=== PATIENT | male | born 1990 | race Caucasian/White ===

== ENCOUNTER 2017-03-01 14:05 | Inpatient (IN) | payer MEDICAID, OTHER ==
[2017-03-01] MEDS: SOD CHLORIDE 0.9% 1,000 ML IV ×2 (16:08→19:16)
[2017-03-01] MEDS: morphine 4 MG/ML VIAL IV (16:08)
[2017-03-01] MEDS: ONDANSETRON 4 MG INJ IV (16:08)
[2017-03-01 16:09] LABS: ADD MAN DIFF? NO
[2017-03-01 16:11] LABS: WHITE BLOOD COUNT 18.3 10^3/ul (4.8-10.8)
[2017-03-01 16:11] LABS: BASOPHIL # 0.1 10^3/ul (0.0-0.1); BASOPHILS % 0.4 % (0.0-2.0); EOSINOPHILS % 0.1 % (0.0-7.0); HEMATOCRIT 44.6 % (42.0-52.0); HEMOGLOBIN 15.5 g/dl (14.0-18.0); LYMPHOCYTES # 1.6 10^3/ul (0.8-2.9); LYMPHOCYTES % 8.5 % (15.0-51.0); MEAN CORPUSCULAR HEMOGLOBIN 29.8 pg (29.0-33.0); MEAN CORPUSCULAR HGB CONC 34.8 g/dl (32.0-37.0); MEAN CORPUSCULAR VOLUME 85.6 fl (82.0-101.0); MEAN PLATELET VOLUME 9.2 fl (7.4-10.4); MONOCYTE # 1.2 10^3/ul (0.3-0.9); MONOCYTES % 6.6 % (0.0-11.0); NEUTROPHIL # 15.2 10^3/ul (1.6-7.5); NEUTROPHILS % 82.7 % (39.0-77.0); PLATELET COUNT 431 10^3/UL (140-415); RED BLOOD COUNT 5.21 10^6/ul (4.70-6.10); RED CELL DISTRIBUTION WIDTH 12.3 % (11.5-14.5)
[2017-03-01 16:13] LABS: ADD UMIC NO; UR ASCORBIC ACID NEGATIVE (NEGATIVE); UR BILIRUBIN (Dip) NEGATIVE (NEGATIVE); UR BLOOD (Dip) NEGATIVE (NEGATIVE); UR CLARITY CLEAR (CLEAR); UR COLOR STRAW (YELLOW); UR GLUCOSE (Dip) 3+ mg/dL (NEGATIVE); UR KETONES (Dip) 2+ mg/dL (NEGATIVE); UR LEUKOCYTE ESTERASE (Dip) NEGATIVE Leu/ul (NEGATIVE); UR NITRITE (Dip) NEGATIVE (NEGATIVE); UR SPECIFIC GRAVITY (Dip) 1.018 (1.003-1.030); UR TOTAL PROTEIN (Dip) NEGATIVE (NEGATIVE); UR UROBILINOGEN (Dip) NEGATIVE (NEGATIVE)
[2017-03-01 16:31] LABS: AMPHETAMINE/METHAMPHETAMINE Positive (NEGATIVE); BARBITURATES Negative (NEGATIVE); BENZODIAZEPINES Negative (NEGATIVE); CANNABINOIDS Negative (NEGATIVE); COCAINE Negative (NEGATIVE); OPIATES Negative (NEGATIVE)
[2017-03-01 16:37] LABS: ALANINE AMINOTRANSFERASE 39 IU/L (13-69); ALBUMIN 5.1 g/dl (3.3-4.9); ALBUMIN/GLOBULIN RATIO 1.75; ALKALINE PHOSPHATASE 172 IU/L (42-121); ANION GAP 34 (8-16); ASPARTATE AMINO TRANSFERASE 36 IU/L (15-46); BILIRUBIN,INDIRECT 0.3 mg/dl (0-1.1); BILIRUBIN,TOTAL 0.3 mg/dl (0.2-1.3); BLOOD UREA NITROGEN 20 mg/dl (7-20); CALCIUM 9.6 mg/dl (8.4-10.2); CARBON DIOXIDE 14 mmol/L (21-31); CHLORIDE 91 mmol/L (97-110); CREATININE 0.97 mg/dl (0.61-1.24); LIPASE 1315 U/L (23-300); POTASSIUM 5.1 mmol/L (3.5-5.1); SODIUM 134 mmol/L (135-144)
[2017-03-01 16:42] LABS: ETHANOL < 10.0 mg/dl; GLUCOSE 432 mg/dl (70-220)
[2017-03-01] MEDS: ACCU-CHEK XX ×7 (18:06→23:13)
[2017-03-01] MEDS: POTASSIUM CHLORIDE 30 MEQ in SOD CHLORIDE 0.9% 1,000 ML IV (19:10)
[2017-03-01] MEDS: INSULIN HUMAN REGULAR 100 UNIT in SOD CHLORIDE 0.9% 99 ML IV (19:15)
[2017-03-01] MEDS ORDERED: HYDROCODONE/APAP (5/325) TAB PO (19:30)
[2017-03-01] MEDS ORDERED: morphine 2 MG INJ IV (19:30)
[2017-03-01] MEDS ORDERED: ACETAMINOPHEN 325 MG TAB PO (19:30)
[2017-03-01] MEDS ORDERED: ONDANSETRON 4 MG INJ IV (19:30)
[2017-03-01] MEDS ORDERED: DEXTROSE 50% 50 ML SYRINGE IV ×2 (19:30)
[2017-03-01] MEDS ORDERED: NACL 0.9% 3 ML SYG IV (19:30)
[2017-03-01] MEDS ORDERED: INSULIN HUMAN REGULAR 100 UNIT in SOD CHLORIDE 0.9% 99 ML IV (19:30)
[2017-03-01] MEDS ORDERED: HYPOGLYCEMIA TREATMENT XX (19:30)
[2017-03-01] MEDS: LACTATED RINGER'S 1,000 ML IV (20:16)
[2017-03-01 21:02] LABS: PHOSPHORUS 4.1 mg/dl (2.5-4.9)
[2017-03-01] MEDS ORDERED: POTASSIUM CHLORIDE 20 MEQ in SOD CHLORIDE 0.9% 1,000 ML IV (21:16)
[2017-03-01 21:58] LABS: BLOOD UREA NITROGEN 15 mg/dl (7-20); CALCIUM 8.4 mg/dl (8.4-10.2); CARBON DIOXIDE 13 mmol/L (21-31); CHLORIDE 105 mmol/L (97-110); GLUCOSE 243 mg/dl (70-220); SODIUM 136 mmol/L (135-144)
[2017-03-01 22:02] LABS: ANION GAP 23 (8-16); POTASSIUM 4.5 mmol/L (3.5-5.1)
[2017-03-01] MEDS: D5W-0.45 NACL + KCL 30 MEQ 1,000 ML IV (22:26)
[2017-03-02] MEDS: ACCU-CHEK XX ×8 (00:10→14:59)
[2017-03-02] MEDS: D5W-0.45 NACL + KCL 30 MEQ 1,000 ML IV ×2 (01:55→10:51)
[2017-03-02 02:41] LABS: ANION GAP 12 (8-16); BLOOD UREA NITROGEN 13 mg/dl (7-20); CALCIUM 8.2 mg/dl (8.4-10.2); CARBON DIOXIDE 22 mmol/L (21-31); CHLORIDE 107 mmol/L (97-110); CREATININE 0.69 mg/dl (0.61-1.24); GLUCOSE 93 mg/dl (70-220); POTASSIUM 3.9 mmol/L (3.5-5.1); SODIUM 137 mmol/L (135-144)
[2017-03-02] MEDS: SOD CHLORIDE 0.9% 1,000 ML IV (03:35)
[2017-03-02] MEDS: PANTOPRAZOLE 40 MG INJ IV (06:33)
[2017-03-02 06:56] LABS: ADD MAN DIFF? NO
[2017-03-02 07:04] LABS: BASOPHILS % 0.2 % (0.0-2.0); EOSINOPHILS # 0.1 10^3/ul (0.0-0.5); EOSINOPHILS % 0.4 % (0.0-7.0); HEMATOCRIT 36.6 % (42.0-52.0); HEMOGLOBIN 12.7 g/dl (14.0-18.0); LYMPHOCYTES # 1.7 10^3/ul (0.8-2.9); LYMPHOCYTES % 12.5 % (15.0-51.0); MEAN CORPUSCULAR HEMOGLOBIN 30.2 pg (29.0-33.0); MEAN CORPUSCULAR HGB CONC 34.7 g/dl (32.0-37.0); MEAN CORPUSCULAR VOLUME 87.1 fl (82.0-101.0); MEAN PLATELET VOLUME 9.1 fl (7.4-10.4); MONOCYTE # 1.1 10^3/ul (0.3-0.9); MONOCYTES % 7.8 % (0.0-11.0); NEUTROPHIL # 10.7 10^3/ul (1.6-7.5); NEUTROPHILS % 78.6 % (39.0-77.0); PLATELET COUNT 321 10^3/UL (140-415); RED CELL DISTRIBUTION WIDTH 12.4 % (11.5-14.5)
[2017-03-02 07:04] LABS: WHITE BLOOD COUNT 13.7 10^3/ul (4.8-10.8)
[2017-03-02 07:15] LABS: ALANINE AMINOTRANSFERASE 36 IU/L (13-69); ALBUMIN 3.2 g/dl (3.3-4.9); ALBUMIN/GLOBULIN RATIO 1.28; ALKALINE PHOSPHATASE 98 IU/L (42-121); ANION GAP 20 (8-16); ASPARTATE AMINO TRANSFERASE 21 IU/L (15-46); BILIRUBIN,INDIRECT 0.2 mg/dl (0-1.1); BILIRUBIN,TOTAL 0.2 mg/dl (0.2-1.3); BLOOD UREA NITROGEN 12 mg/dl (7-20); CALCIUM 8.6 mg/dl (8.4-10.2); CARBON DIOXIDE 14 mmol/L (21-31); CHLORIDE 104 mmol/L (97-110); CHOL/HDL RATIO 2.9 RATIO; CHOLESTEROL 154 mg/dl (100-200); CREATININE 0.67 mg/dl (0.61-1.24); GLUCOSE 313 mg/dl (70-220); HDL CHOLESTEROL 53 mg/dl (30-63); LDL CHOLESTEROL,CALCULATED 61 mg/dl; MAGNESIUM 1.8 mg/dl (1.7-2.5); PHOSPHORUS 3.2 mg/dl (2.5-4.9); POTASSIUM 4.8 mmol/L (3.5-5.1); SODIUM 133 mmol/L (135-144); TOTAL PROTEIN 5.7 g/dl (6.1-8.1); TRIGLYCERIDES 201 mg/dl (0-149)
[2017-03-02] MEDS: INSULIN ASPART [NOVOLOG] 3 ML PEN SC ×4 (07:35→20:56)
[2017-03-02 08:31] LABS: HEMOGLOBIN A1C 11.4 % (0-5.9)
[2017-03-02] MEDS: INSULIN REGULAR, HUMAN 100 UNIT/1 ML 3ML VIAL IV (09:45)
[2017-03-02] MEDS: INSULIN HUMAN REGULAR 100 UNIT in SOD CHLORIDE 0.9% 99 ML IV (09:57)
[2017-03-02 10:34] LABS: ANION GAP 19 (8-16); BLOOD UREA NITROGEN 12 mg/dl (7-20); CALCIUM 8.6 mg/dl (8.4-10.2); CARBON DIOXIDE 14 mmol/L (21-31); CHLORIDE 102 mmol/L (97-110); GLUCOSE 295 mg/dl (70-220); SODIUM 131 mmol/L (135-144)
[2017-03-02 14:48] LABS: ANION GAP 9 (8-16); BLOOD UREA NITROGEN 12 mg/dl (7-20); CALCIUM 8.7 mg/dl (8.4-10.2); CARBON DIOXIDE 24 mmol/L (21-31); CHLORIDE 104 mmol/L (97-110); CREATININE 0.62 mg/dl (0.61-1.24); GLUCOSE 94 mg/dl (70-220); POTASSIUM 3.8 mmol/L (3.5-5.1); SODIUM 133 mmol/L (135-144)
[2017-03-02] MEDS ORDERED: D5W-0.45 NACL + KCL 20 MEQ 1,000 ML IV (14:51)
[2017-03-02] MEDS: D5W-0.45 NACL + KCL 20 MEQ 1,000 ML IV (15:30)
[2017-03-02] MEDS: INFLUENZA VIRUS VACCINE 0.5 ML (DISPENSING) IM* (16:00)
[2017-03-02] MEDS: INSULIN GLARGINE [LANtus] 3 ML PEN SC (17:02)
[2017-03-02] MEDS ORDERED: INSULIN ASPART [NOVOLOG] 3 ML PEN SC (17:35)
[2017-03-02] MEDS ORDERED: INSULIN GLARGINE [LANtus] 3 ML PEN SC (20:00)
[2017-03-02 20:31] LABS: ANION GAP 12 (8-16); BLOOD UREA NITROGEN 9 mg/dl (7-20); CALCIUM 8.8 mg/dl (8.4-10.2); CARBON DIOXIDE 23 mmol/L (21-31); CHLORIDE 101 mmol/L (97-110); CREATININE 0.64 mg/dl (0.61-1.24); GLUCOSE 139 mg/dl (70-220); POTASSIUM 3.9 mmol/L (3.5-5.1); SODIUM 132 mmol/L (135-144)
[2017-03-02 22:27] LABS: ANION GAP 11 (8-16); BLOOD UREA NITROGEN 11 mg/dl (7-20); CALCIUM 8.9 mg/dl (8.4-10.2); CARBON DIOXIDE 26 mmol/L (21-31); CHLORIDE 98 mmol/L (97-110); CREATININE 0.63 mg/dl (0.61-1.24); GLUCOSE 231 mg/dl (70-220); POTASSIUM 3.9 mmol/L (3.5-5.1); SODIUM 131 mmol/L (135-144)
[2017-03-03] MEDS: ACCU-CHEK XX ×11 (02:02→20:09)
[2017-03-03] MEDS: INSULIN ASPART [NOVOLOG] 3 ML PEN SC ×6 (02:08→20:08)
[2017-03-03 04:57] LABS: ADD MAN DIFF? NO
[2017-03-03 04:59] LABS: BASOPHILS % 0.2 % (0.0-2.0); EOSINOPHILS # 0.1 10^3/ul (0.0-0.5); EOSINOPHILS % 0.8 % (0.0-7.0); HEMATOCRIT 35.8 % (42.0-52.0); HEMOGLOBIN 12.8 g/dl (14.0-18.0); LYMPHOCYTES # 1.7 10^3/ul (0.8-2.9); LYMPHOCYTES % 20.2 % (15.0-51.0); MEAN CORPUSCULAR HEMOGLOBIN 30.7 pg (29.0-33.0); MEAN CORPUSCULAR HGB CONC 35.8 g/dl (32.0-37.0); MEAN CORPUSCULAR VOLUME 85.9 fl (82.0-101.0); MEAN PLATELET VOLUME 9.6 fl (7.4-10.4); MONOCYTE # 0.4 10^3/ul (0.3-0.9); MONOCYTES % 4.8 % (0.0-11.0); NEUTROPHIL # 6.3 10^3/ul (1.6-7.5); NEUTROPHILS % 73.8 % (39.0-77.0); PLATELET COUNT 304 10^3/UL (140-415); RED BLOOD COUNT 4.17 10^6/ul (4.70-6.10); RED CELL DISTRIBUTION WIDTH 12.2 % (11.5-14.5)
[2017-03-03 04:59] LABS: WHITE BLOOD COUNT 8.5 10^3/ul (4.8-10.8)
[2017-03-03 05:34] LABS: ALANINE AMINOTRANSFERASE 25 IU/L (13-69); ALBUMIN 3.7 g/dl (3.3-4.9); ALBUMIN/GLOBULIN RATIO 1.32; ALKALINE PHOSPHATASE 124 IU/L (42-121); ANION GAP 19 (8-16); ASPARTATE AMINO TRANSFERASE 45 IU/L (15-46); BILIRUBIN,INDIRECT 0.2 mg/dl (0-1.1); BILIRUBIN,TOTAL 0.2 mg/dl (0.2-1.3); BLOOD UREA NITROGEN 13 mg/dl (7-20); CALCIUM 8.4 mg/dl (8.4-10.2); CARBON DIOXIDE 17 mmol/L (21-31); CHLORIDE 98 mmol/L (97-110); CREATININE 0.62 mg/dl (0.61-1.24); POTASSIUM 4.9 mmol/L (3.5-5.1); SODIUM 129 mmol/L (135-144); TOTAL PROTEIN 6.5 g/dl (6.1-8.1)
[2017-03-03 06:27] LABS: GLUCOSE 448 mg/dl (70-220)
[2017-03-03] MEDS ORDERED: INSULIN ASPART [NOVOLOG] 3 ML PEN SC ×2 (07:35→11:30)
[2017-03-03] MEDS: INSULIN REGULAR, HUMAN 100 UNIT/1 ML 3ML VIAL IV (08:53)
[2017-03-03] MEDS ORDERED: DEXTROSE 50% 50 ML SYRINGE IV ×4 (09:00→14:00)
[2017-03-03] MEDS: INSULIN HUMAN REGULAR 100 UNIT in SOD CHLORIDE 0.9% 99 ML IV ×2 (09:00→11:05)
[2017-03-03] MEDS: SOD CHLORIDE 0.9% 1,000 ML IV (10:53)
[2017-03-03 13:18] LABS: ANION GAP 11 (8-16); BLOOD UREA NITROGEN 12 mg/dl (7-20); CALCIUM 8.8 mg/dl (8.4-10.2); CARBON DIOXIDE 26 mmol/L (21-31); CHLORIDE 101 mmol/L (97-110); CREATININE 0.56 mg/dl (0.61-1.24); GLUCOSE 179 mg/dl (70-220); POTASSIUM 3.7 mmol/L (3.5-5.1); SODIUM 134 mmol/L (135-144)
[2017-03-03] MEDS ORDERED: GLUCOSE GEL 15 GRAM TUBE BUCCAL (14:00)
[2017-03-03] MEDS ORDERED: GLUCAGON 1 MG INJ IM (14:00)
[2017-03-03] MEDS ORDERED: GLUCOSE GEL 15 GRAM TUBE PO ×2 (14:00)
[2017-03-03] MEDS: INSULIN GLARGINE [LANtus] 3 ML PEN SC (14:13)
[2017-03-03 18:53] LABS: ANION GAP 13 (8-16); BLOOD UREA NITROGEN 14 mg/dl (7-20); CALCIUM 8.9 mg/dl (8.4-10.2); CARBON DIOXIDE 24 mmol/L (21-31); CHLORIDE 100 mmol/L (97-110); CREATININE 0.68 mg/dl (0.61-1.24); GLUCOSE 182 mg/dl (70-220); POTASSIUM 3.4 mmol/L (3.5-5.1); SODIUM 134 mmol/L (135-144)
[2017-03-03 23:29] LABS: ANION GAP 14 (8-16); BLOOD UREA NITROGEN 15 mg/dl (7-20); CALCIUM 8.9 mg/dl (8.4-10.2); CARBON DIOXIDE 26 mmol/L (21-31); CHLORIDE 100 mmol/L (97-110); CREATININE 0.62 mg/dl (0.61-1.24); GLUCOSE 104 mg/dl (70-220); POTASSIUM 3.2 mmol/L (3.5-5.1); SODIUM 137 mmol/L (135-144)
[2017-03-04] MEDS: POTASSIUM CHLORIDE 20 MEQ POWDER FOR ORAL SOLN PO (00:46)
[2017-03-04] MEDS: ACCU-CHEK XX ×3 (00:49→13:29)
[2017-03-04 06:02] LABS: ANION GAP 13 (8-16); CALCIUM 8.9 mg/dl (8.4-10.2); CARBON DIOXIDE 25 mmol/L (21-31); CHLORIDE 102 mmol/L (97-110); CREATININE 0.51 mg/dl (0.61-1.24); GLUCOSE 236 mg/dl (70-220); POTASSIUM 3.8 mmol/L (3.5-5.1); SODIUM 136 mmol/L (135-144)
[2017-03-04 06:04] LABS: BLOOD UREA NITROGEN 12 mg/dl (7-20)
[2017-03-04] MEDS: INSULIN ASPART [NOVOLOG] 3 ML PEN SC ×4 (08:16→12:03)
[2017-03-04] MEDS: INSULIN GLARGINE [LANtus] 3 ML PEN SC (08:18)
== END 2017-03-04 13:45 | disposition home or self-care (01) | DRG 637 ==
LOC: PP2 03-04 01:49 → E/R 14:05 → ICU 17:09
PROVIDERS: Internal Medicine
DX: E10.10 Type 1 diabetes mellitus with ketoacidosis without coma (principal); K85.20 Alcohol induced acute pancreatitis without necrosis or infection; E86.0 Dehydration; F15.10 Other stimulant abuse, uncomplicated; R11.2 Nausea with vomiting, unspecified; Z79.4 Long term (current) use of insulin; Z72.89 Other problems related to lifestyle; Z91.14 Patient's other noncompliance with medication regimen
CPT/HCPCS: 36415; 71045; 80048; 80053; 80061; 80306; 80307; 81003; 82962; 83036; 83690; 83735; 84100; 85025; 90686; 93005; 96372; 96374; 96375; 99291-25

== ENCOUNTER 2017-03-09 20:28 | Emergency (ER) | payer SELFPAY, MEDICAID | END 2017-03-09 21:04 | disposition left against medical advice (07) | LOC: E/R 20:28 | DX: Z53.21 Procedure and treatment not carried out due to patient leaving prior to being seen by health care provider (principal) | CPT/HCPCS: 82962 ==

== ENCOUNTER 2017-07-29 18:55 | Inpatient (IN) | payer BC, MEDICAID ==
[2017-07-29] MEDS: KETOROLAC 30 MG INJ IV (21:03)
[2017-07-29] MEDS: SOD CHLORIDE 0.9% 1,000 ML IV (21:04)
[2017-07-29] MEDS: CLINDAMYCIN 600 MG/D5W (PMX) 50 ML IVPB (21:08)
[2017-07-29 21:12] LABS: ADD MAN DIFF? NO
[2017-07-29 21:19] LABS: ADD UMIC YES; UR ASCORBIC ACID NEGATIVE (NEGATIVE); UR BILIRUBIN (Dip) NEGATIVE (NEGATIVE); UR BLOOD (Dip) 1+ mg/dL (NEGATIVE); UR CLARITY CLEAR (CLEAR); UR COLOR YELLOW (YELLOW); UR GLUCOSE (Dip) 3+ mg/dL (NEGATIVE); UR KETONES (Dip) 2+ mg/dL (NEGATIVE); UR LEUKOCYTE ESTERASE (Dip) NEGATIVE Leu/ul (NEGATIVE); UR NITRITE (Dip) NEGATIVE (NEGATIVE); UR RBC 1 /HPF (0-5); UR SPECIFIC GRAVITY (Dip) 1.014 (1.003-1.030); UR TOTAL PROTEIN (Dip) 1+ mg/dl (NEGATIVE); UR UROBILINOGEN (Dip) NEGATIVE (NEGATIVE); UR WBC 1 /HPF (0-5)
[2017-07-29 21:32] LABS: ANION GAP 27 (8-16); BASOPHILS % 0.3 % (0.0-2.0); BLOOD UREA NITROGEN 10 mg/dl (7-20); CARBON DIOXIDE 12 mmol/L (21-31); CHLORIDE 98 mmol/L (97-110); CREATININE 0.78 mg/dl (0.61-1.24); GLUCOSE 245 mg/dl (70-220); HEMATOCRIT 45.1 % (42.0-52.0); HEMOGLOBIN 15.8 g/dl (14.0-18.0); LYMPHOCYTES # 1.2 10^3/ul (0.8-2.9); MEAN CORPUSCULAR HEMOGLOBIN 29.6 pg (29.0-33.0); MEAN CORPUSCULAR VOLUME 84.5 fl (82.0-101.0); MEAN PLATELET VOLUME 8.8 fl (7.4-10.4); MONOCYTE # 0.7 10^3/ul (0.3-0.9); MONOCYTES % 5.5 % (0.0-11.0); NEUTROPHILS % 84.6 % (39.0-77.0); PLATELET COUNT 456 10^3/UL (140-415); POTASSIUM 4.5 mmol/L (3.5-5.1); RED BLOOD COUNT 5.34 10^6/ul (4.70-6.10); RED CELL DISTRIBUTION WIDTH 12.2 % (11.5-14.5); SODIUM 132 mmol/L (135-144)
[2017-07-29 21:33] LABS: ALANINE AMINOTRANSFERASE 20 IU/L (13-69); ALBUMIN 5.2 g/dl (3.3-4.9); ALKALINE PHOSPHATASE 222 IU/L (42-121); ASPARTATE AMINO TRANSFERASE 15 IU/L (15-46); BILIRUBIN,INDIRECT 0.9 mg/dl (0-1.1); BILIRUBIN,TOTAL 0.9 mg/dl (0.2-1.3); CALCIUM 9.9 mg/dl (8.4-10.2); TOTAL PROTEIN 8.9 g/dl (6.1-8.1)
[2017-07-29 21:51] LABS: AMPHETAMINE/METHAMPHETAMINE POSITIVE (NEGATIVE); BARBITURATES NEGATIVE (NEGATIVE); BENZODIAZEPINES NEGATIVE (NEGATIVE); CANNABINOIDS NEGATIVE (NEGATIVE); COCAINE NEGATIVE (NEGATIVE); OPIATES NEGATIVE (NEGATIVE)
[2017-07-29] MEDS: SODIUM CHLORIDE 0.9% 1L BAG IV* (23:47)
[2017-07-30 00:15] LABS: LACTIC ACID 1.1 mmol/L (0.5-2.0)
[2017-07-30 02:07] LABS: LACTIC ACID 0.9 mmol/L (0.5-2.0)
[2017-07-30] MEDS ORDERED: NACL 0.9% 3 ML SYG IV (03:30)
[2017-07-30] MEDS ORDERED: DOCUSATE SODIUM 100 MG CAP PO (03:30)
[2017-07-30] MEDS ORDERED: VANCOMYCIN IV PER PHARMACY XX (03:30)
[2017-07-30] MEDS ORDERED: MAGNESIUM HYDROXIDE 30ML CUP PO (03:30)
[2017-07-30] MEDS: CEFEPIME 2GM/50 ML (PMX) 50 ML IVPB (03:38)
[2017-07-30] MEDS: VANCOMYCIN 1 GM (PMX) 250 ML IVPB (03:38)
[2017-07-30] MEDS: SOD CHLORIDE 0.9% 1,000 ML IV ×4 (03:39→17:20)
[2017-07-30 04:08] LABS: LACTIC ACID 0.8 mmol/L (0.5-2.0)
[2017-07-30] MEDS: KETOROLAC 30 MG INJ IV (05:15)
[2017-07-30] MEDS: ONDANSETRON 4 MG INJ IV (05:16)
[2017-07-30] MEDS: ONDANSETRON 4 MG TAB PO (07:57)
[2017-07-30] MEDS ORDERED: DEXTROSE 50% 50 ML SYRINGE IV ×2 (08:30)
[2017-07-30 08:34] LABS: Allen Test ACCEPTAB; Arterial Base Excess -31.3 mmol/L (-3.0-3); Arterial Blood Gas Oxygen Sat 97.8 mmHG (95.0-98.0); Arterial COHb 0.2 % (0.0-3.0); Arterial Fraction of Oxyhgb 97.1 % (93.0-99.0); Arterial HCO3 1.8 mmol/L (22.0-26.0); Arterial MetHb 0.5 % (0.0-1.5); Arterial Total Hemglobin 15.4 g/dl (12.0-18.0); Arterial pCO2 10.8 mmhg (35-45); MODE ROOM AIR; Site Right Radial
[2017-07-30 08:54] LABS: HEMOGLOBIN A1C 13.3 % (0-5.9)
[2017-07-30 08:57] LABS: BLOOD UREA NITROGEN 14 mg/dl (7-20); CALCIUM 8.5 mg/dl (8.4-10.2); CHLORIDE 105 mmol/L (97-110); CREATININE 0.96 mg/dl (0.61-1.24); POTASSIUM 5.8 mmol/L (3.5-5.1); SODIUM 133 mmol/L (135-144)
[2017-07-30 09:01] LABS: PHOSPHORUS 5.7 mg/dl (2.5-4.9)
[2017-07-30 09:01] LABS: GLUCOSE 624 mg/dl (70-220)
[2017-07-30] MEDS: INSULIN HUMAN REGULAR 100 UNIT in SOD CHLORIDE 0.9% 99 ML IV ×3 (09:15→14:09)
[2017-07-30] MEDS: ACCU-CHEK XX ×16 (09:30→23:19)
[2017-07-30] MEDS: ENOXAPARIN 40 MG/0.4 ML SYG SC (09:39)
[2017-07-30] MEDS: LACTATED RINGER'S 1,000 ML IV (09:52)
[2017-07-30 09:53] LABS: ANION GAP 29 (8-16)
[2017-07-30 09:54] LABS: CARBON DIOXIDE < 5 mmol/L (21-31)
[2017-07-30] MEDS: POTASSIUM CHLORIDE 20 MEQ in SOD CHLORIDE 0.9% 1,000 ML IV (10:28)
[2017-07-30 10:50] LABS: MAGNESIUM 2.3 mg/dl (1.7-2.5)
[2017-07-30] MEDS: VANCOMYCIN 750 MG in SOD CHLORIDE 0.9% 150 ML IVPB ×2 (12:36→21:20)
[2017-07-30 13:24] LABS: BLOOD UREA NITROGEN 14 mg/dl (7-20); CHLORIDE 114 mmol/L (97-110); CREATININE 0.87 mg/dl (0.61-1.24); GLUCOSE 344 mg/dl (70-220); MAGNESIUM 2.2 mg/dl (1.7-2.5); PHOSPHORUS 4.1 mg/dl (2.5-4.9); POTASSIUM 4.8 mmol/L (3.5-5.1); SODIUM 139 mmol/L (135-144)
[2017-07-30 13:25] LABS: ANION GAP 25 (8-16)
[2017-07-30 13:26] LABS: CARBON DIOXIDE < 5 mmol/L (21-31)
[2017-07-30] MEDS: DEXTROSE 5%-LR 1,000 ML IV ×2 (15:16→20:10)
[2017-07-30] MEDS: POTASSIUM CHLORIDE 20 MEQ in LACTATED RINGER'S 1,000 ML IV (15:26)
[2017-07-30] MEDS ORDERED: LORAZEPAM 2 MG INJ IV (16:00)
[2017-07-30] MEDS ORDERED: POTASSIUM CHLORIDE 20 MEQ in LACTATED RINGER'S 1,000 ML IV (17:34)
[2017-07-30 18:05] LABS: ANION GAP 19 (8-16); BLOOD UREA NITROGEN 12 mg/dl (7-20); CHLORIDE 119 mmol/L (97-110); CREATININE 0.81 mg/dl (0.61-1.24); GLUCOSE 145 mg/dl (70-220); MAGNESIUM 2.1 mg/dl (1.7-2.5); PHOSPHORUS 2.1 mg/dl (2.5-4.9); SODIUM 139 mmol/L (135-144)
[2017-07-30 18:10] LABS: CARBON DIOXIDE 5 mmol/L (21-31)
[2017-07-30] MEDS: POTASSIUM PHOSPHATE 30 MM in SOD CHLORIDE 0.9% 250 ML IVPB (20:10)
[2017-07-31] MEDS: ACCU-CHEK XX ×18 (00:06→17:03)
[2017-07-31 01:40] LABS: ANION GAP 16 (8-16); BLOOD UREA NITROGEN 9 mg/dl (7-20); CALCIUM 7.9 mg/dl (8.4-10.2); CARBON DIOXIDE 14 mmol/L (21-31); CHLORIDE 113 mmol/L (97-110); GLUCOSE 113 mg/dl (70-220); MAGNESIUM 1.7 mg/dl (1.7-2.5); PHOSPHORUS 3.7 mg/dl (2.5-4.9); POTASSIUM 3.3 mmol/L (3.5-5.1); SODIUM 140 mmol/L (135-144)
[2017-07-31] MEDS: SOD CHLORIDE 0.9% 1,000 ML IV (02:09)
[2017-07-31] MEDS: DEXTROSE 5%-LR 1,000 ML IV ×3 (02:10→08:46)
[2017-07-31] MEDS: POTASSIUM CHLORIDE 50 ML IVPB ×6 (02:40→12:44)
[2017-07-31 03:45] LABS: VANCOMYCIN,TROUGH 13.1 ug/ml (10.0-20.0)
[2017-07-31] MEDS: VANCOMYCIN 750 MG in SOD CHLORIDE 0.9% 150 ML IVPB ×3 (04:35→20:43)
[2017-07-31 06:43] LABS: ANION GAP 14 (8-16); BLOOD UREA NITROGEN 8 mg/dl (7-20); CALCIUM 7.9 mg/dl (8.4-10.2); CARBON DIOXIDE 15 mmol/L (21-31); CHLORIDE 114 mmol/L (97-110); CREATININE 0.64 mg/dl (0.61-1.24); GLUCOSE 150 mg/dl (70-220); MAGNESIUM 1.7 mg/dl (1.7-2.5); PHOSPHORUS 2.9 mg/dl (2.5-4.9); SODIUM 140 mmol/L (135-144)
[2017-07-31 06:51] LABS: FREE THYROXINE INDEX (Calc) 2.74 ug/ml (0.65-3.89); T3 UPTAKE 42.1 % (23.5-40.5); T4 (THYROXINE) 6.5 ug/dl (5.5-11.0)
[2017-07-31 07:09] LABS: HEMOGLOBIN A1C 12.8 % (0-5.9)
[2017-07-31] MEDS: ENOXAPARIN 40 MG/0.4 ML SYG SC (09:22)
[2017-07-31] MEDS: MAGNESIUM SULFATE 2 GM/50 ML 50 ML IVPB (09:30)
[2017-07-31] MEDS: POTASSIUM CHLORIDE 40 MEQ in SOD CHLORIDE 0.9% 1,000 ML IV (10:21)
[2017-07-31 12:17] LABS: ADD MAN DIFF? NO
[2017-07-31 12:19] LABS: WHITE BLOOD COUNT 10.7 10^3/ul (4.8-10.8)
[2017-07-31 12:19] LABS: BASOPHILS % 0.1 % (0.0-2.0); EOSINOPHILS % 0.1 % (0.0-7.0); HEMATOCRIT 32.6 % (42.0-52.0); HEMOGLOBIN 11.9 g/dl (14.0-18.0); LYMPHOCYTES # 1.4 10^3/ul (0.8-2.9); LYMPHOCYTES % 13.2 % (15.0-51.0); MEAN CORPUSCULAR HGB CONC 36.5 g/dl (32.0-37.0); MEAN CORPUSCULAR VOLUME 82.1 fl (82.0-101.0); MEAN PLATELET VOLUME 8.4 fl (7.4-10.4); MONOCYTE # 0.9 10^3/ul (0.3-0.9); MONOCYTES % 8.5 % (0.0-11.0); NEUTROPHIL # 8.3 10^3/ul (1.6-7.5); NEUTROPHILS % 77.8 % (39.0-77.0); PLATELET COUNT 274 10^3/UL (140-415); RED BLOOD COUNT 3.97 10^6/ul (4.70-6.10); RED CELL DISTRIBUTION WIDTH 12.4 % (11.5-14.5)
[2017-07-31 12:40] LABS: ANION GAP 12 (8-16); BLOOD UREA NITROGEN 5 mg/dl (7-20); CALCIUM 8.2 mg/dl (8.4-10.2); CARBON DIOXIDE 20 mmol/L (21-31); CHLORIDE 111 mmol/L (97-110); CREATININE 0.56 mg/dl (0.61-1.24); GLUCOSE 93 mg/dl (70-220); MAGNESIUM 2.3 mg/dl (1.7-2.5); PHOSPHORUS 1.5 mg/dl (2.5-4.9); SODIUM 140 mmol/L (135-144)
[2017-07-31 12:42] LABS: POTASSIUM 2.8 mmol/L (3.5-5.1)
[2017-07-31] MEDS: [UNRECOGNIZED DRUG - REMARK] XX (13:13)
[2017-07-31] MEDS: [UNRECOGNIZED DRUG - REMARK] XX (13:13)
[2017-07-31] MEDS: POTASSIUM CHLORIDE (SR) 20 MEQ TAB PO ×2 (13:19→21:08)
[2017-07-31] MEDS ORDERED: GLUCOSE GEL 15 GRAM TUBE PO ×2 (14:00)
[2017-07-31] MEDS ORDERED: GLUCOSE GEL 15 GRAM TUBE BUCCAL (14:00)
[2017-07-31] MEDS ORDERED: GLUCAGON 1 MG INJ IM (14:00)
[2017-07-31] MEDS ORDERED: DEXTROSE 50% 50 ML SYRINGE IV ×2 (14:00)
[2017-07-31] MEDS: POTASSIUM PHOSPHATE 30 MM in SOD CHLORIDE 0.9% 250 ML IVPB (15:34)
[2017-07-31] MEDS: INSULIN GLARGINE [LANtus] 3 ML PEN SC ×2 (15:38→23:39)
[2017-07-31 19:51] LABS: ANION GAP 15 (8-16); BLOOD UREA NITROGEN 6 mg/dl (7-20); CALCIUM 7.8 mg/dl (8.4-10.2); CARBON DIOXIDE 17 mmol/L (21-31); CHLORIDE 109 mmol/L (97-110); CREATININE 0.73 mg/dl (0.61-1.24); GLUCOSE 228 mg/dl (70-220); PHOSPHORUS 2.5 mg/dl (2.5-4.9); POTASSIUM 3.6 mmol/L (3.5-5.1); SODIUM 137 mmol/L (135-144)
[2017-07-31] MEDS: INSULIN ASPART [NOVOLOG] 3 ML PEN SC ×2 (21:11→23:45)
[2017-07-31] MEDS: ACETAMINOPHEN 325 MG TAB PO (23:05)
[2017-08-01] MEDS ORDERED: ACCU-CHEK XX (02:00)
[2017-08-01] MEDS: ACCU-CHEK XX (02:10)
[2017-08-01] MEDS: VANCOMYCIN 750 MG in SOD CHLORIDE 0.9% 150 ML IVPB ×2 (03:58→12:07)
[2017-08-01 07:26] LABS: ANION GAP 11 (8-16); BLOOD UREA NITROGEN 11 mg/dl (7-20); CALCIUM 8.2 mg/dl (8.4-10.2); CARBON DIOXIDE 21 mmol/L (21-31); CHLORIDE 108 mmol/L (97-110); CREATININE 0.56 mg/dl (0.61-1.24); GLUCOSE 250 mg/dl (70-220); POTASSIUM 3.3 mmol/L (3.5-5.1); SODIUM 137 mmol/L (135-144)
[2017-08-01] MEDS ORDERED: INSULIN ASPART [NOVOLOG] 3 ML PEN SC (07:35)
[2017-08-01 07:58] LABS: MAGNESIUM 1.9 mg/dl (1.7-2.5)
[2017-08-01 07:58] LABS: PHOSPHORUS 2.5 mg/dl (2.5-4.9)
[2017-08-01] MEDS: INSULIN ASPART [NOVOLOG] 3 ML PEN SC ×8 (08:15→17:58)
[2017-08-01] MEDS: ENOXAPARIN 40 MG/0.4 ML SYG SC (08:44)
[2017-08-01] MEDS: POTASSIUM CHLORIDE (SR) 20 MEQ TAB PO ×2 (09:20→12:00)
[2017-08-01] MEDS: INSULIN GLARGINE [LANtus] 3 ML PEN SC (17:52)
[2017-08-01] MEDS ORDERED: INSULIN GLARGINE [LANtus] 3 ML PEN SC (20:00)
== END 2017-08-01 19:20 | disposition home or self-care (01) | DRG 871 ==
LOC: FTE 18:55 → MS2 07-31 22:50 → ICU 07-30 03:21
PROVIDERS: Internal Medicine
DX: A41.9 Sepsis, unspecified organism (principal); E10.10 Type 1 diabetes mellitus with ketoacidosis without coma; G93.41 Metabolic encephalopathy; L03.116 Cellulitis of left lower limb; F15.20 Other stimulant dependence, uncomplicated; Z91.14 Patient's other noncompliance with medication regimen; Z79.4 Long term (current) use of insulin; E86.0 Dehydration
CPT/HCPCS: 36600; 73562; 80048; 80053; 80202; 80307; 81001; 82803; 82962; 83036; 83605; 83735; 84100; 84436; 84479; 85025; 87040; 87081

== ENCOUNTER 2017-09-14 19:34 | Emergency (ER) | payer BC | END 2017-09-14 20:53 | disposition home or self-care (01) | LOC: FTE 19:34 | DX: Z76.0 Encounter for issue of repeat prescription (principal); E11.9 Type 2 diabetes mellitus without complications; Z79.4 Long term (current) use of insulin | CPT/HCPCS: 99281 ==

== ENCOUNTER 2017-10-05 04:02 | Inpatient (IN) | payer BC ==
[2017-10-05] MEDS: SOD CHLORIDE 0.9% 590 ML IV (04:33)
[2017-10-05 04:34] LABS: MODE NASAL CANNULA; MetHgb Venous 0.6 %; Sample Type Blood venous; Site VENOUS LINE; Venous COHb 0.3 %; Venous Fraction OxyHgb 82.3 %; Venous Total Hemglobin 17.4 g/dl
[2017-10-05] MEDS ORDERED: SODIUM CHLORIDE 23.4% 77 MEQ, POTASSIUM CHLORIDE 40 MEQ in DEXTROSE 10% 1,000 ML IV ×2 (04:36→06:11)
[2017-10-05] MEDS ORDERED: POTASSIUM CHLORIDE 40 MEQ in SOD CHLORIDE 0.9% 1,000 ML IV ×2 (04:36→06:11)
[2017-10-05 04:40] LABS: ADD MAN DIFF? NO
[2017-10-05 04:43] LABS: BASOPHIL # 0.1 10^3/ul (0.0-0.1); BASOPHILS % 0.5 % (0.0-2.0); EOSINOPHILS % 0.2 % (0.0-7.0); HEMATOCRIT 47.1 % (42.0-52.0); HEMOGLOBIN 15.8 g/dl (14.0-18.0); LYMPHOCYTES % 9.1 % (15.0-51.0); MEAN CORPUSCULAR HEMOGLOBIN 29.3 pg (29.0-33.0); MEAN CORPUSCULAR HGB CONC 33.5 g/dl (32.0-37.0); MEAN CORPUSCULAR VOLUME 87.4 fl (82.0-101.0); MEAN PLATELET VOLUME 9.3 fl (7.4-10.4); MONOCYTES % 4.5 % (0.0-11.0); NEUTROPHIL # 18.3 10^3/ul (1.6-7.5); NEUTROPHILS % 83.4 % (39.0-77.0); PLATELET COUNT 526 10^3/UL (140-415); RED BLOOD COUNT 5.39 10^6/ul (4.70-6.10); RED CELL DISTRIBUTION WIDTH 11.7 % (11.5-14.5)
[2017-10-05 04:56] LABS: ADD UMIC YES; UR ASCORBIC ACID NEGATIVE (NEGATIVE); UR BILIRUBIN (Dip) NEGATIVE (NEGATIVE); UR BLOOD (Dip) 1+ mg/dL (NEGATIVE); UR CLARITY CLEAR (CLEAR); UR COLOR STRAW (YELLOW); UR GLUCOSE (Dip) 3+ mg/dL (NEGATIVE); UR KETONES (Dip) 2+ mg/dL (NEGATIVE); UR LEUKOCYTE ESTERASE (Dip) NEGATIVE Leu/ul (NEGATIVE); UR NITRITE (Dip) NEGATIVE (NEGATIVE); UR RBC 1 /HPF (0-5); UR SPECIFIC GRAVITY (Dip) 1.016 (1.003-1.030); UR TOTAL PROTEIN (Dip) 1+ mg/dl (NEGATIVE); UR UROBILINOGEN (Dip) NEGATIVE (NEGATIVE); UR WBC 1 /HPF (0-5)
[2017-10-05] MEDS: SOD CHLORIDE 0.9% 550 ML IV (04:57)
[2017-10-05] MEDS ORDERED: DEXTROSE 50% 50 ML SYRINGE IV ×4 (05:00→06:30)
[2017-10-05 05:02] LABS: LACTIC ACID 7.4 mmol/L (0.5-2.0)
[2017-10-05 05:05] LABS: ALANINE AMINOTRANSFERASE 30 IU/L (13-69); ALBUMIN 4.8 g/dl (3.3-4.9); ALBUMIN/GLOBULIN RATIO 1.26; ALKALINE PHOSPHATASE 216 IU/L (42-121); ASPARTATE AMINO TRANSFERASE 30 IU/L (15-46); BILIRUBIN,INDIRECT 0.1 mg/dl (0-1.1); BILIRUBIN,TOTAL 0.1 mg/dl (0.2-1.3); BLOOD UREA NITROGEN 23 mg/dl (7-20); CALCIUM 9.6 mg/dl (8.4-10.2); CHLORIDE 88 mmol/L (97-110); CREATININE 1.89 mg/dl (0.61-1.24); MAGNESIUM 2.3 mg/dl (1.7-2.5); PHOSPHORUS 10.6 mg/dl (2.5-4.9); SODIUM 127 mmol/L (135-144); TOTAL PROTEIN 8.6 g/dl (6.1-8.1)
[2017-10-05 05:11] LABS: ANION GAP 41 (8-16)
[2017-10-05 05:13] LABS: TROPONIN-I < 0.012 ng/ml (0.000-0.120)
[2017-10-05 05:14] LABS: CARBON DIOXIDE < 5 mmol/L (21-31)
[2017-10-05 05:15] LABS: GLUCOSE 801 mg/dl (70-220)
[2017-10-05] MEDS ORDERED: SODIUM CHLORIDE 23.4% 77 MEQ in DEXTROSE 10% 1,000 ML IV ×2 (05:19→06:11)
[2017-10-05] MEDS ORDERED: SOD CHLORIDE 0.9% 1,000 ML IV ×2 (05:19→06:11)
[2017-10-05] MEDS ORDERED: INSULIN REGULAR, HUMAN 100 UNIT in SOD CHLORIDE 0.9% 100 ML IV ×2 (05:30→06:30)
[2017-10-05] MEDS: LACTATED RINGER'S 550 ML IV (05:35)
[2017-10-05] MEDS: CEFEPIME 2GM/50 ML (PMX) 50 ML IVPB (05:53)
[2017-10-05] MEDS: ONDANSETRON 4 MG INJ IV (06:06)
[2017-10-05] MEDS ORDERED: POTASSIUM CHLORIDE 30 MEQ in SOD CHLORIDE 0.9% 1,000 ML IV (06:11)
[2017-10-05] MEDS ORDERED: SODIUM CHLORIDE 23.4% 77 MEQ, POTASSIUM CHLORIDE 30 MEQ in DEXTROSE 10% 1,000 ML IV (06:11)
[2017-10-05] MEDS: CALCIUM GLUCONATE 10% 1 GM in DEXTROSE 5% 100 ML IVPB (06:18)
[2017-10-05 06:23] LABS: MODE NASAL CANNULA; MetHgb Venous 0.5 %; Sample Type Blood venous; Site VENOUS LINE; Venous COHb 0.3 %; Venous Fraction OxyHgb 86.2 %; Venous Oxygen Sat 86.9 mmHG (55.0-75.0); Venous Total Hemglobin 13.2 g/dl
[2017-10-05 06:30] LABS: HEMOGLOBIN A1C 11.8 % (0-5.9)
[2017-10-05] MEDS ORDERED: VANCOMYCIN IV PER PHARMACY XX (06:30)
[2017-10-05] MEDS ORDERED: POTASSIUM CHLORIDE 50 ML IVPB (06:30)
[2017-10-05] MEDS ORDERED: SODIUM BICARBONATE (IV ADD) 50 ML (06:36)
[2017-10-05] MEDS: ALBUTEROL 0.083% (NEB) 2.5 MG/3 ML AMP HHN (06:46)
[2017-10-05] MEDS: INSULIN REGULAR, HUMAN 100 UNIT in SOD CHLORIDE 0.9% 100 ML IV ×2 (06:47→20:42)
[2017-10-05] MEDS: NA BICARBONATE 8.4% 50 ML SYG IV (06:47)
[2017-10-05] MEDS: ACCU-CHEK XX ×19 (06:57→23:30)
[2017-10-05] MEDS ORDERED: MAGNESIUM SULFATE 1 GM/100 ML D5W IVPB (07:00)
[2017-10-05] MEDS ORDERED: CA CHLORIDE 10% 10 ML SYRINGE (07:00)
[2017-10-05] MEDS: VANCOMYCIN 1 GM (PMX) 250 ML IVPB (07:05)
[2017-10-05 07:11] LABS: ADD UMIC YES; UR ASCORBIC ACID NEGATIVE (NEGATIVE); UR BILIRUBIN (Dip) NEGATIVE (NEGATIVE); UR BLOOD (Dip) 1+ mg/dL (NEGATIVE); UR CLARITY CLEAR (CLEAR); UR COLOR STRAW (YELLOW); UR GLUCOSE (Dip) 3+ mg/dL (NEGATIVE); UR KETONES (Dip) 2+ mg/dL (NEGATIVE); UR LEUKOCYTE ESTERASE (Dip) NEGATIVE Leu/ul (NEGATIVE); UR MUCUS FEW /HPF (NONE SEEN); UR NITRITE (Dip) NEGATIVE (NEGATIVE); UR RBC 0 /HPF (0-5); UR SPECIFIC GRAVITY (Dip) 1.015 (1.003-1.030); UR TOTAL PROTEIN (Dip) 1+ mg/dl (NEGATIVE); UR UROBILINOGEN (Dip) NEGATIVE (NEGATIVE); UR WBC 2 /HPF (0-5)
[2017-10-05] MEDS: SOD CHLORIDE 0.9% 1,000 ML IV ×2 (07:12→10:48)
[2017-10-05] MEDS: MAGNESIUM SULFATE 1 GM/D5W 100 ML IVPB (07:12)
[2017-10-05] MEDS: CA CHLORIDE 10% 10 ML SYRINGE IV (07:12)
[2017-10-05 07:13] LABS: BLOOD UREA NITROGEN 25 mg/dl (7-20); CALCIUM 9.5 mg/dl (8.4-10.2); CHLORIDE 92 mmol/L (97-110); CREATININE 1.82 mg/dl (0.61-1.24); MAGNESIUM 2.2 mg/dl (1.7-2.5); PHOSPHORUS 8.9 mg/dl (2.5-4.9); SODIUM 127 mmol/L (135-144)
[2017-10-05 07:24] LABS: ANION GAP 37 (8-16)
[2017-10-05 07:27] LABS: CARBON DIOXIDE < 5 mmol/L (21-31); GLUCOSE 827 mg/dl (70-220); POTASSIUM 7.3 mmol/L (3.5-5.1)
[2017-10-05 08:18] LABS: GLUCOSE 716 mg/dl (70-220); LACTIC ACID 5.4 mmol/L (0.5-2.0)
[2017-10-05 08:54] LABS: MODE ROOM AIR; MetHgb Venous 0.5 %; Sample Type Blood venous; Site VENOUS LINE; Venous COHb 0.2 %; Venous Fraction OxyHgb 84.6 %; Venous Oxygen Sat 85.2 mmHG (55.0-75.0); Venous Total Hemglobin 15.3 g/dl
[2017-10-05 09:33] LABS: BLOOD UREA NITROGEN 25 mg/dl (7-20); CALCIUM 8.9 mg/dl (8.4-10.2); CHLORIDE 102 mmol/L (97-110); CREATININE 1.49 mg/dl (0.61-1.24); MAGNESIUM 2.6 mg/dl (1.7-2.5); PHOSPHORUS 7.3 mg/dl (2.5-4.9); SODIUM 132 mmol/L (135-144)
[2017-10-05 09:35] LABS: POTASSIUM 6.3 mmol/L (3.5-5.1)
[2017-10-05 09:36] LABS: ANION GAP 31 (8-16); CARBON DIOXIDE < 5 mmol/L (21-31)
[2017-10-05 09:38] LABS: GLUCOSE 610 mg/dl (70-220)
[2017-10-05] MEDS: SODIUM CHLORIDE 23.4% 77 MEQ in DEXTROSE 10% 1,000 ML IV (10:50)
[2017-10-05 10:59] LABS: AMPHETAMINE/METHAMPHETAMINE Positive (NEGATIVE); BARBITURATES Negative (NEGATIVE); BENZODIAZEPINES Negative (NEGATIVE); CANNABINOIDS Negative (NEGATIVE); COCAINE Negative (NEGATIVE); OPIATES Negative (NEGATIVE)
[2017-10-05 11:09] LABS: LACTIC ACID 1.7 mmol/L (0.5-2.0)
[2017-10-05 13:52] LABS: BLOOD UREA NITROGEN 22 mg/dl (7-20); CALCIUM 8.2 mg/dl (8.4-10.2); CHLORIDE 107 mmol/L (97-110); MAGNESIUM 2.2 mg/dl (1.7-2.5); PHOSPHORUS 4.3 mg/dl (2.5-4.9); POTASSIUM 4.8 mmol/L (3.5-5.1); SODIUM 136 mmol/L (135-144)
[2017-10-05 13:53] LABS: ANION GAP 29 (8-16)
[2017-10-05 13:56] LABS: CARBON DIOXIDE < 5 mmol/L (21-31); GLUCOSE 496 mg/dl (70-220)
[2017-10-05] MEDS: POTASSIUM CHLORIDE 30 MEQ in SOD CHLORIDE 0.9% 1,000 ML IV (13:58)
[2017-10-05] MEDS: SODIUM CHLORIDE 23.4% 77 MEQ, POTASSIUM CHLORIDE 30 MEQ in DEXTROSE 10% 1,000 ML IV ×2 (13:58→21:42)
[2017-10-05 14:20] LABS: ANION GAP 22 (8-16); BLOOD UREA NITROGEN 20 mg/dl (7-20); CALCIUM 8.4 mg/dl (8.4-10.2); CHLORIDE 111 mmol/L (97-110); CREATININE 1.11 mg/dl (0.61-1.24); GLUCOSE 257 mg/dl (70-220); POTASSIUM 4.4 mmol/L (3.5-5.1); SODIUM 138 mmol/L (135-144)
[2017-10-05 14:30] LABS: CARBON DIOXIDE 9 mmol/L (21-31)
[2017-10-05] MEDS: VANCOMYCIN 750 MG in SOD CHLORIDE 0.9% 150 ML IVPB (17:08)
[2017-10-05 17:25] LABS: AADO2 Venous 80.6 mmHg; MODE ROOM AIR; MetHgb Venous 0.4 %; Sample Type Blood venous; Site OTHER; Venous COHb 0.6 %; Venous Fraction OxyHgb 75.4 %; Venous Oxygen Sat 76.2 mmHG (55.0-75.0); Venous Total Hemglobin 14.3 g/dl
[2017-10-05 17:58] LABS: ANION GAP 16 (8-16); BLOOD UREA NITROGEN 18 mg/dl (7-20); CALCIUM 8.5 mg/dl (8.4-10.2); CARBON DIOXIDE 13 mmol/L (21-31); CHLORIDE 112 mmol/L (97-110); CREATININE 0.96 mg/dl (0.61-1.24); GLUCOSE 253 mg/dl (70-220); POTASSIUM 4.3 mmol/L (3.5-5.1); SODIUM 137 mmol/L (135-144)
[2017-10-05 19:21] LABS: ADD UMIC YES; UR ASCORBIC ACID NEGATIVE (NEGATIVE); UR BILIRUBIN (Dip) NEGATIVE (NEGATIVE); UR BLOOD (Dip) 1+ mg/dL (NEGATIVE); UR CLARITY CLEAR (CLEAR); UR COLOR STRAW (YELLOW); UR GLUCOSE (Dip) 3+ mg/dL (NEGATIVE); UR KETONES (Dip) 2+ mg/dL (NEGATIVE); UR LEUKOCYTE ESTERASE (Dip) NEGATIVE Leu/ul (NEGATIVE); UR NITRITE (Dip) NEGATIVE (NEGATIVE); UR RBC 1 /HPF (0-5); UR SPECIFIC GRAVITY (Dip) 1.008 (1.003-1.030); UR TOTAL PROTEIN (Dip) NEGATIVE (NEGATIVE); UR UROBILINOGEN (Dip) NEGATIVE (NEGATIVE); UR WBC 2 /HPF (0-5)
[2017-10-05] MEDS: FAMOTIDINE 20 MG INJ IV (20:15)
[2017-10-05] MEDS: CEFEPIME 1GM/50 ML (PMX) 50 ML IVPB (20:15)
[2017-10-05 22:39] LABS: ANION GAP 11 (8-16); BLOOD UREA NITROGEN 16 mg/dl (7-20); CALCIUM 8.1 mg/dl (8.4-10.2); CARBON DIOXIDE 17 mmol/L (21-31); CHLORIDE 111 mmol/L (97-110); CREATININE 0.73 mg/dl (0.61-1.24); GLUCOSE 175 mg/dl (70-220); MAGNESIUM 1.8 mg/dl (1.7-2.5); PHOSPHORUS 1.6 mg/dl (2.5-4.9); POTASSIUM 3.7 mmol/L (3.5-5.1); SODIUM 135 mmol/L (135-144)
[2017-10-06] MEDS: INSULIN GLARGINE [LANTus] (100 UNITS/ML) SYG SC ×3 (00:30→20:19)
[2017-10-06 01:49] LABS: ANION GAP 10 (8-16); BLOOD UREA NITROGEN 13 mg/dl (7-20); CALCIUM 7.9 mg/dl (8.4-10.2); CARBON DIOXIDE 17 mmol/L (21-31); CHLORIDE 112 mmol/L (97-110); CREATININE 0.67 mg/dl (0.61-1.24); GLUCOSE 232 mg/dl (70-220); MAGNESIUM 1.7 mg/dl (1.7-2.5); PHOSPHORUS 1.6 mg/dl (2.5-4.9); POTASSIUM 3.5 mmol/L (3.5-5.1); SODIUM 135 mmol/L (135-144)
[2017-10-06 01:50] LABS: MODE ROOM AIR; MetHgb Venous 0.4 %; Sample Type Blood venous; Site OTHER; Venous COHb 0.6 %; Venous Fraction OxyHgb 95.9 %; Venous Oxygen Sat 96.9 mmHG (55.0-75.0)
[2017-10-06] MEDS: ACCU-CHEK XX ×3 (03:30→10:30)
[2017-10-06] MEDS: Insulin NOVOLOG SS MODERATE Algorithm(NPO/TPN/ENTERAL FEEDS) SC ×2 (05:02→08:51)
[2017-10-06] MEDS: VANCOMYCIN 750 MG in SOD CHLORIDE 0.9% 150 ML IVPB (05:09)
[2017-10-06 05:23] LABS: ADD MAN DIFF? NO
[2017-10-06 05:28] LABS: WHITE BLOOD COUNT 10.2 10^3/ul (4.8-10.8)
[2017-10-06 05:28] LABS: BASOPHILS % 0.1 % (0.0-2.0); EOSINOPHILS % 0.3 % (0.0-7.0); HEMATOCRIT 33.7 % (42.0-52.0); HEMOGLOBIN 12.3 g/dl (14.0-18.0); LYMPHOCYTES # 1.3 10^3/ul (0.8-2.9); LYMPHOCYTES % 12.4 % (15.0-51.0); MEAN CORPUSCULAR HEMOGLOBIN 29.9 pg (29.0-33.0); MEAN CORPUSCULAR HGB CONC 36.5 g/dl (32.0-37.0); MEAN PLATELET VOLUME 8.9 fl (7.4-10.4); MONOCYTE # 0.7 10^3/ul (0.3-0.9); MONOCYTES % 7.2 % (0.0-11.0); NEUTROPHIL # 8.1 10^3/ul (1.6-7.5); NEUTROPHILS % 79.2 % (39.0-77.0); PLATELET COUNT 320 10^3/UL (140-415); RED BLOOD COUNT 4.11 10^6/ul (4.70-6.10); RED CELL DISTRIBUTION WIDTH 11.9 % (11.5-14.5)
[2017-10-06 05:57] LABS: ANION GAP 14 (8-16); BLOOD UREA NITROGEN 11 mg/dl (7-20); CARBON DIOXIDE 17 mmol/L (21-31); CHLORIDE 108 mmol/L (97-110); CREATININE 0.74 mg/dl (0.61-1.24); GLUCOSE 354 mg/dl (70-220); MAGNESIUM 1.7 mg/dl (1.7-2.5); PHOSPHORUS 1.8 mg/dl (2.5-4.9); POTASSIUM 3.7 mmol/L (3.5-5.1); SODIUM 135 mmol/L (135-144)
[2017-10-06] MEDS: CEFEPIME 1GM/50 ML (PMX) 50 ML IVPB ×2 (08:50→20:12)
[2017-10-06] MEDS: FAMOTIDINE 20 MG INJ IV ×2 (08:55→20:12)
[2017-10-06] MEDS: ENOXAPARIN 40 MG/0.4 ML SYG SC (09:02)
[2017-10-06] MEDS ORDERED: DEXTROSE 50% 50 ML SYRINGE IV ×2 (10:30)
[2017-10-06] MEDS ORDERED: GLUCOSE GEL 15 GRAM TUBE PO ×2 (10:30)
[2017-10-06] MEDS ORDERED: GLUCOSE GEL 15 GRAM TUBE BUCCAL (10:30)
[2017-10-06] MEDS ORDERED: GLUCAGON 1 MG INJ IM (10:30)
[2017-10-06] MEDS: MAGNESIUM SULFATE 2 GM/50 ML 50 ML IVPB (10:33)
[2017-10-06] MEDS: POTASSIUM PHOSPHATE 30 MM in SOD CHLORIDE 0.9% 250 ML IVPB (12:31)
[2017-10-06] MEDS: INSULIN ASPART [NOVOLOG] 3 ML PEN SC ×5 (12:42→20:20)
[2017-10-07 06:45] LABS: MAGNESIUM 1.9 mg/dl (1.7-2.5)
[2017-10-07 06:45] LABS: PHOSPHORUS 2.4 mg/dl (2.5-4.9)
[2017-10-07 07:32] LABS: ANION GAP 8 (8-16); BLOOD UREA NITROGEN 13 mg/dl (7-20); CALCIUM 8.3 mg/dl (8.4-10.2); CARBON DIOXIDE 26 mmol/L (21-31); CHLORIDE 103 mmol/L (97-110); CREATININE 0.68 mg/dl (0.61-1.24); GLUCOSE 265 mg/dl (70-220); POTASSIUM 3.3 mmol/L (3.5-5.1); SODIUM 134 mmol/L (135-144)
[2017-10-07] MEDS: POTASSIUM CHLORIDE (SR) 20 MEQ TAB PO (08:36)
[2017-10-07] MEDS: FAMOTIDINE 20 MG INJ IV (08:36)
[2017-10-07] MEDS: INSULIN ASPART [NOVOLOG] 3 ML PEN SC ×4 (08:41→12:44)
[2017-10-07] MEDS: ENOXAPARIN 40 MG/0.4 ML SYG SC (08:41)
[2017-10-07] MEDS: INSULIN GLARGINE [LANTus] (100 UNITS/ML) SYG SC (09:48)
[2017-10-07] MEDS ORDERED: INSULIN GLARGINE [LANTus] (100 UNITS/ML) SYG SC (20:00)
== END 2017-10-07 14:40 | disposition home or self-care (01) | DRG 637 ==
LOC: 2NE 10-06 13:35 → E/R 04:02 → ICU 05:40
DX: E10.10 Type 1 diabetes mellitus with ketoacidosis without coma (principal); G93.41 Metabolic encephalopathy; Z91.14 Patient's other noncompliance with medication regimen
CPT/HCPCS: 36415; 71045; 80048; 80053; 80307; 81001; 82803; 82947; 82962; 83036; 83605; 83735; 84100; 84484; 85025; 87040; 87081; 94664; 96360; 99291-25